=== PATIENT | male | born 1940 ===

== ENCOUNTER 2018-07-30 06:24 | Day surgery (SDC) | payer OTHER ==
[~2018-07-30 06:24] MED LIST: Buffered Lidocaine 1% SYRIN* 1 ML/SYRINGE INTRADERM ONE
[2018-07-30] MEDS ORDERED: Midazolam* 1 MG/ML 2 ML VIAL (2 MG) ONE (07:29)
[2018-07-30 08:07] VITALS: BP 137/72
--- NOTE | 2018-07-30 09:28 | OP ---
DATE OF OPERATION: 07/30/18 [facility] DATE OF : 44 SURGEON: Demario Licea MD. ANESTHESIA: Monitored anesthesia care. PRE-OP DIAGNOSIS: Cataract, right eye. POST-OP DIAGNOSIS: Cataract, right eye. OPERATIVE PROCEDURE: Extracapsular cataract extraction of the right eye with intraocular lens implant. IMPLANTS: SN6AT4 14.5 diopter lens at 177 degrees. COMPLICATIONS: None. DESCRIPTION OF PROCEDURE: The patient was given phenylephrine 2.5% and cyclopentolate 1% eye drops to the operative eye in the preoperative area. The patient was sat in the upright position and corneal markings were placed at 0 to 180 degrees to assist in toric lens placement. The patient was taken to the operating room, where a time-out was taken to identify the correct patient, site , and side of surgery. The patient's right eye was prepped and draped in the usual sterile fashion with 5% Betadine. A second time-out was taken to verify the correct patient, site, and side of surgery and correct lens implant. A lid speculum was placed to the right eye. A toric lens mounter was used to place the corneal markings at 177 degrees. A 1 mm paracentesis blade was used to make a clear corneal incision in the supero-temporal position. Preservative- free 1% lidocaine was injected into the anterior chamber. Provisc was then injected into the anterior chamber. A 2.75 mm keratome blade was used to make a triplanar incision at the inferotemporal position. A cystotome initiated a capsulorrhexis, which was completed with Utrata forceps in a continuous and curvilinear manner. Hydrodissection of the lens was performed with BSS on a cannula. The lens could be spun in a capsular bag. The phacoemulsification handpiece was used with a ywnjcj-dia-ykvhefi technique to remove the nucleus. The I/A handpiece then removed the residual cortical lens material. Provisc was then injected into the anterior chamber. The ORA system was then used to confirm the patient's predicted IOL prescription. The planned SN6AT4 14.5 diopter lens was then injected into the capsular bag and rotated to 177 degrees. The residual Provisc was then removed from the eye with the I/A handpiece. The corneal incisions were hydrated and no leaks occurred at physiologic pressure around 20 mmHg per palpation. The lens was confirmed to be at the 177-degree meridian. The lid speculum was removed and drapes removed. Maxitrol ointment was then placed to the surface of the operative eye. An adhesive patch and shield was then placed on the operative eye. The patient was taken to the postoperative area in stable condition. [id number]/[facility] #: [id number] MTDD
[2018-07-30] MEDS ORDERED: Povidone Iodine 5% OPTH* 30 ML BTL ONE (13:34)
[2018-07-30] MEDS ORDERED: Lidocaine 1%* 5 ML VIAL ONE (13:34)
[2018-07-30] MEDS ORDERED: Neomycin/Polymy/Dex OPHTH.OIN* 3.5 GM ONE (13:34)
[2018-07-30] MEDS ORDERED: Phenylephrine OPHTH SOL 2.5%* 2 ML ONE (13:34)
[2018-07-30] MEDS ORDERED: acetaZOLAMIDE TAB* 250 MG ONE (13:34)
[2018-07-30] MEDS ORDERED: Tropicamide 1% OPTH.SOL* BTL ONE (13:34)
[2018-07-30] MEDS ORDERED: Cyclopentolate 1% OPTH.SOL* 2 ML BTL ONE (13:34)
[2018-07-30] MEDS ORDERED: Ketorolac 0.5% OPHTH (NF) 0.5 % 5 ML BTL ONE (13:35)
[2018-07-30] MEDS ORDERED: Tetracaine 0.5% OPTH.SOL 4 ML* 1 DROP BTL ONE (13:35)
== END 2018-07-30 08:19 | disposition home or self-care (01) ==
LOC: OREAST 06:24
PROVIDERS: ATTEND Student in an Organized Health Care Education/Training Program
DX: H25.11 Age-related nuclear cataract, right eye (principal); H43.813 Vitreous degeneration, bilateral; I10 Essential (primary) hypertension; M19.90 Unspecified osteoarthritis, unspecified site; E78.00 Pure hypercholesterolemia, unspecified; Z85.118 Personal history of other malignant neoplasm of bronchus and lung; J44.9 Chronic obstructive pulmonary disease, unspecified
CPT/HCPCS: A9270-GY; J2250; V2787